=== PATIENT | female | born 1980 | race Caucasian/White ===

== ENCOUNTER 2023-12-09 08:36 | Outpatient (CLI) | payer OTHER ==
[2023-12-09] MEDS ORDERED: Iopamidol 370 76% 100 ML VIAL ONE (08:54)
== END 2023-12-09 08:37 | disposition home or self-care (01) ==
LOC: BURCT 08:36
PROVIDERS: ATTEND Family Medicine
DX: R10.84 Generalized abdominal pain (principal); N32.89 Other specified disorders of bladder; N83.202 Unspecified ovarian cyst, left side; N85.4 Malposition of uterus
CPT/HCPCS: 74177; Q9967